=== PATIENT | female | born 1945 | race Caucasian/White ===

== ENCOUNTER 2021-01-17 01:11 | Emergency (ER) | payer MEDICARE, BC ==
[~2021-01-17] VITALS: Ht 157.5 cm; Wt 79.5 kg
[~2021-01-17 01:11] MED LIST: ALBU18HF2 IH; ASPI-1009 PO; GLUC1CAP32 PO; LEVO88TA28 PO; MULT-1066 PO; PRAV10TA38 PO; PREVCR VG; PSYL283P30 PO; VALA500T33 PO
[2021-01-17] MEDS ORDERED: ondansetron/PF 4mg/2ml inj IV ONE (01:15)
[2021-01-17] MEDS ORDERED: acetaminophen 325mg tablet PO ONE (01:15)
[2021-01-17] MEDS ORDERED: normal saline 1000ML IV soln IVB ONE ×2 (01:15→02:30)
[2021-01-17] MEDS ORDERED: dexamethasone sod phosphate 10mg/ml inj IV STA (01:15)
[2021-01-17] MEDS ORDERED: ipratropium/albuterol 3ml nebule NEB ONE (01:15)
--- NOTE | 2021-01-17 01:22 | NUR ---
PT REPORTS BEING AT [employer] LAST WEEK TO PICKUP A VISITOR. PT REPORTS NOT WEARING A MASK.
[2021-01-17 02:18] LABS: ALANINE AMINOTRANSFERASE 34 U/L (12-78); ALBUMIN 3.2 G/DL (3.4-5.0); ALBUMIN/GLOBULIN RATIO 0.8 (1.1-1.5); ALKALINE PHOSPHATASE 76 IU/L (46-116); ANION GAP 12 (8-16); ASPARTATE AMINO TRANSFERASE 29 U/L (10-37); BILIRUBIN,TOTAL 0.4 MG/DL (0.1-1.0); BLOOD UREA NITROGEN 26 MG/DL (7-18); BUN/CREATININE RATIO 21.8 (6.6-38.0); CALCIUM 8.3 MG/DL (8.5-10.1); CHLORIDE 104 MMOL/L (99-107); CREATININE 1.19 MG/DL (0.40-0.90); GLUCOSE 129 MG/DL (70-104); POTASSIUM 3.9 MMOL/L (3.5-5.1); SODIUM 137 MMOL/L (135-145); TOTAL CARBON DIOXIDE 21.5 MMOL/L (24-32); eGFR 44 ML/MIN
[2021-01-17 02:22] LABS: BASOPHILS % (AUTO) 0.2 % (0-1); EOSINOPHILS # (AUTO) 0.2 X10'3 (0-0.9); EOSINOPHILS % (AUTO) 1.6 % (0-6); HEMATOCRIT 38.5 % (35.0-45.0); LYMPHOCYTES # (AUTO) 0.3 X10'3 (1.1-4.8); LYMPHOCYTES % (AUTO) 2.9 % (21-51); MEAN CORPUSCULAR HEMOGLOBIN 31.6 PG (27.0-31.0); MEAN CORPUSCULAR HGB CONC 33.7 g/dL (33.0-36.5); MEAN CORPUSCULAR VOLUME 93.9 FL (78-98); MEAN PLATELET VOLUME 7.9 FL (7.4-10.4); MONOCYTES # (AUTO) 0.6 X10'3 (0-0.9); MONOCYTES % (AUTO) 5.4 % (2-12); NEUTROPHILS # (AUTO) 9.3 X10'3 (1.8-7.7); NEUTROPHILS % (AUTO) 89.9 % (42-75); PLATELET COUNT 173 X10'3 (140-440); RED CELL DISTRIBUTION WIDTH 12.8 % (11.5-14.5); WHITE BLOOD COUNT 10.4 X10'3 (4.5-11.0)
[2021-01-17 02:25] LABS: MAGNESIUM 1.7 MG/DL (1.5-2.4)
[2021-01-17 02:36] LABS: CLARITY,URINE SLIGHTLY CLOUDY (Clear); COLOR,URINE YELLOW (Yellow); GLUCOSE, URINE NEGATIVE (Neg); KETONES,URINE NEGATIVE (Neg); LEUKOCYTE ESTERASE ,URINE SMALL (Neg); NITRITES, URINE NEGATIVE (Neg); OCCULT BLOOD,URINE LARGE (Neg); PROTEIN,URINE TRACE mg/dl (Neg); UROBILINOGEN,URINE 0.2 E.U/dL (0.2-1.0)
[2021-01-17 02:37] LABS: UA COLLECTION TYPE URINAL
[2021-01-17 02:49] LABS: BACTERIA,URINE 2+ /HPF (Neg); SQUAMOUS EPITHELIAL CELL,UR MANY /LPF (FEW)
[2021-01-17 02:50] LABS: MUCUS STRANDS NONE SEEN /LPF (Neg)
[2021-01-17] MEDS ORDERED: CefTRIAXone 2gm/D5W 50ml BAG 50 ML IV ONE (04:20)
[2021-01-17] MEDS ORDERED: ONDA4TAB6 PO (04:21)
[2021-01-17] MEDS ORDERED: PRED20TA PO (04:21)
[2021-01-17 06:15] VITALS: BP 102/54
== END 2021-01-17 05:20 | disposition home or self-care (01) ==
LOC: ER 01:11
DX: K29.70 Gastritis, unspecified, without bleeding (principal); R06.02 Shortness of breath; N28.9 Disorder of kidney and ureter, unspecified; N39.0 Urinary tract infection, site not specified; R53.1 Weakness; Z20.822 Contact with and (suspected) exposure to COVID-19; Z88.0 Allergy status to penicillin; Z88.2 Allergy status to sulfonamides; Z79.82 Long term (current) use of aspirin; Z79.899 Other long term (current) drug therapy
CPT/HCPCS: 36415; 71045; 80053; 81001; 83605; 83735; 83880; 84145; 84484; 85025; 87040; 87635; 93005; 94640; 96361; 96365; 96375; 99285; C9803; J0696; J1100; J2405; J7030; 94760

== ENCOUNTER 2024-04-24 05:56 | Day surgery (SDC) | payer MEDICARE, BC ==
[2024-04-23 12:12] LABS: BASOPHILS # (AUTO) 0.1 X10'3 (0-0.2); BASOPHILS % (AUTO) 0.7 % (0-1); EOSINOPHILS # (AUTO) 0.1 X10'3 (0-0.9); EOSINOPHILS % (AUTO) 1.6 % (0-6); HEMATOCRIT 40.4 % (35.0-45.0); HEMOGLOBIN 13.4 g/dl (12.0-16.0); LYMPHOCYTES # (AUTO) 1.6 X10'3 (1.1-4.8); LYMPHOCYTES % (AUTO) 23.6 % (21-51); MEAN CORPUSCULAR HEMOGLOBIN 31.9 PG (27.0-31.0); MEAN CORPUSCULAR HGB CONC 33.1 g/dL (33.0-36.5); MEAN CORPUSCULAR VOLUME 96.4 FL (78-98); MEAN PLATELET VOLUME 7.4 FL (7.4-10.4); MONOCYTES # (AUTO) 0.7 X10'3 (0-0.9); MONOCYTES % (AUTO) 9.7 % (2-12); NEUTROPHILS # (AUTO) 4.4 X10'3 (1.8-7.7); NEUTROPHILS % (AUTO) 64.4 % (42-75); PLATELET COUNT 199 X10'3 (140-440); RED CELL DISTRIBUTION WIDTH 13.4 % (11.5-14.5); WHITE BLOOD COUNT 6.9 X10'3 (4.5-11.0)
[2024-04-23 12:28] LABS: ALBUMIN 3.5 G/DL (3.4-5.0); ANION GAP 5 (8-16); BLOOD UREA NITROGEN 34 MG/DL (7-18); BUN/CREATININE RATIO 26.2 (10.0-20.0); CALCIUM 9.4 MG/DL (8.5-10.1); CHLORIDE 102 MMOL/L (99-107); GLUCOSE 104 MG/DL (70-104); POTASSIUM 4.2 MMOL/L (3.5-5.1); SODIUM 136 MMOL/L (135-145); TOTAL CARBON DIOXIDE 29.3 MMOL/L (24-32); eGFR 40 ML/MIN
[2024-04-23 13:21] LABS: APTT 27 SECONDS (22-32)
[2024-04-23 13:33] LABS: PROTHROMBIN TIME 10.7 SECONDS (9.0-12.0)
[2024-04-24] VITALS (10 sets, daily range): BP systolic 90–116; BP diastolic 44–81; PULSE 60–63; RESP 14–16; TEMP 97.8–97.9; O2SAT 95–98
[~2024-04-24] VITALS: Ht 157.5 cm; Wt 78.2 kg
[~2024-04-24 05:56] MED LIST changes: +ONDA4TAB6 PO
[2024-04-24] MEDS ORDERED: clindamycin-Cleocin 900mg/D5W 50 ML IV ONE (06:20)
[2024-04-24] MEDS ORDERED: TRIA1CAP88 PO (07:06)
[2024-04-24] MEDS ORDERED: CITA10TA93 PO (07:06)
[2024-04-24] MEDS ORDERED: ASPI-103 PO (07:06)
[2024-04-24] MEDS ORDERED: CARV6.253 PO (07:07)
[2024-04-24] MEDS ORDERED: MONT-40 PO (07:08)
[2024-04-24] MEDS ORDERED: fentaNYL/PF 50MCG/1 ML 2ML syringe ONE (07:14)
[2024-04-24] MEDS ORDERED: midazolam 1 mg/ML 2ml injection ONE (07:14)
[2024-04-24] MEDS ORDERED: iohexol 350 MG/ML 50ML vial IV ONE (07:15)
[2024-04-24] MEDS ORDERED: ceFAZolin 1000mg inj ONE (07:15)
[2024-04-24] MEDS ORDERED: LIDOcaine 1% W/epiNEPHrine 1:100,000 20ml vial ONE (07:15)
[2024-04-24] MEDS ORDERED: vancomycin 1,000mg inj ONE (07:18)
[2024-04-24] MEDS ORDERED: diphenhydrAMINE 50 mg/ml inj ONE (08:29)
[2024-04-24] MEDS ORDERED: CLIN300C3 PO (09:22)
[2024-04-24] MEDS ORDERED: HYDROcodone/acetaminophen 10/325mg tab PO PRN (09:25)
[2024-04-24] MEDS ORDERED: HYDROcodone/acetaminophen 5mg/325mg tablet PO PRN (09:25)
[2024-04-24] MEDS ORDERED: VANCOMYCIN 1GM 200ML H20 (PEG) 200 ML IV ONE (10:20)
[2024-04-24] MEDS ORDERED: vancomycin/NS 1 GM ADD-VANTAGE 250 ML IV ONE (10:25)
[2024-04-24] MEDS: VANCOMYCIN 1GM 200ML H20 (PEG) 200 ML IV ONE (10:50)
== END 2024-04-24 13:00 | disposition home or self-care (01) ==
LOC: SSTAY O 05:56
PROVIDERS: ATTEND Internal Medicine Cardiovascular Disease
DX: Z45.010 Encounter for checking and testing of cardiac pacemaker pulse generator [battery] (principal); I49.5 Sick sinus syndrome; R94.31 Abnormal electrocardiogram [ECG] [EKG]; E03.9 Hypothyroidism, unspecified; J45.909 Unspecified asthma, uncomplicated; E78.5 Hyperlipidemia, unspecified; E66.3 Overweight; F41.9 Anxiety disorder, unspecified; Z79.82 Long term (current) use of aspirin; Z79.890 Hormone replacement therapy; Z79.899 Other long term (current) drug therapy; Z98.890 Other specified postprocedural states; Z68.31 Body mass index [BMI] 31.0-31.9, adult; Z88.0 Allergy status to penicillin
CPT/HCPCS: 33228; 36415; 80048; 85025; 85610; 85730; 93005; 99152; 99153; A6402; C1785; J1200; J2250; J3010; J3370; J3372; J3490; J7030; Q9967; Z7610; A6449; J0690